=== PATIENT | male | born 1975 | race Caucasian/White ===

== ENCOUNTER 2020-10-22 14:04 | Emergency (ER) | payer BC ==
[2020-10-22] MEDS ORDERED: Lidocaine 1% 10 ML MDV INJECT ONE (14:21)
[2020-10-22] MEDS ORDERED: Diphtheria,Pertussis(Acell),Tetanus Vaccine 0.5 ML Syringe IM ONE (14:21)
--- NOTE | 2020-10-22 14:26 | EDM.PDOC ---
ED HPI GENERAL MEDICAL PROBLEM - General Chief Complaint: Laceration Stated Complaint: HAND INJURY Time Seen by Provider: 10/22/20 14:16 Source of Information: Reports: Patient, RN Notes Reviewed History Limitations: Reports: No Limitations - History of Present Illness INITIAL COMMENTS - FREE TEXT/NARRATIVE: Patient is a 45-year-old male who presents to the ER for a right middle finger laceration. Patient states he was at work, holding a sickle, when it slipped and ended up lacerating the distal portion of his right finger. This does run horizontally on the distal fingertip, and does not violate the nail at the last third of the nail. Bleeding is under control at this time, patient is not sure of his last tetanus booster. Patient denies any other sick-like symptoms, fever/chills, cough/shortness of breath, nausea/vomiting/diarrhea. Laceration itself is roughly 1 cm in length. Right Finger-Ring Pain Score (Numeric/FACES): 5 Right Finger-Middle Pain Score (Numeric/FACES): 5 - Related Data Allergies Allergy/AdvReac Type Severity Reaction Status Date / Time No Known Allergies Allergy Verified 10/17/13 12:57 Home Meds: Home Meds Dulaglutide [Trulicity] 1 injection SL WEEKLY 10/22/20 [History] atorvaSTATin [Lipitor] 20 mg PO DAILY 10/22/20 [History] metFORMIN [Glucophage] 500 mg PO DAILY 10/22/20 [History] Past Medical History Cardiovascular History: Reports: High Cholesterol Endocrine/Metabolic History: Reports: Diabetes, Type II - Past Surgical History HEENT Surgical History: Reports: Tonsillectomy Musculoskeletal Surgical History: Reports: Carpal Tunnel Social & Family History - Tobacco Use Tobacco Use Status *Q: Current Every Day Tobacco User Years of Tobacco use: 1 Packs/Tins Daily: 15 - Caffeine Use Caffeine Use: Reports: None - Recreational Drug Use Recreational Drug Use: No ED ROS GENERAL - Review of Systems Review Of Systems: Comprehensive ROS is negative, except as noted in HPI. ED EXAM, SKIN/RASH Exam: See Below Exam Limited By: No Limitations General Appearance: Alert, WD/WN, No Apparent Distress Respiratory/Chest: No Respiratory Distress, Lungs Clear, Normal Breath Sounds, No Accessory Muscle Use, Chest Non-Tender Cardiovascular: Normal Peripheral Pulses, Regular Rate, Rhythm, No Edema Peripheral Pulses: 2+: Radial (L), Radial (R) Neurological: Alert, Oriented, Normal Cognition, No Motor/Sensory Deficits Psychiatric: Normal Affect, Normal Mood Skin: Warm, Dry, Normal Color, No Rash, Wound/Incision (1cm linear laceration to distal R 3rd finger, violates the nail, is in a horizontal fashion.) ED SKIN PROCEDURES - Laceration/Wound Repair Right Posterior Distal Digit - 3rd (Middle) Appearance: Linear, Clean Distal NVT: Neuro & Vascular Intact Anesthetic Type: Local Local Anesthesia - Lidocaine (Xylocaine): 1% Plain Local Anesthetic Volume: 2cc Skin Prep: Providone-Iodine (Betadine), Saline Exploration/Debridement/Repair: Wound Explored, In a Bloodless Field, No Foreign Material Found Closed with: Sutures, Dermabond (The area of the nail laceration was closed with dermabond, pt did not want sutures through nail) Lac/Wound length In cm: 1 Suture Size: 4-0 # of Sutures: 3 Suture Type: Prolene, Interrupted, Simple Sterile Dressing Applied: Nurse Tetanus Status Addressed: Yes Complications: No Course - Vital Signs Last Recorded V/S: Last Vital Signs Temp 97.1 F 10/22/20 14:09 Pulse 90 10/22/20 14:09 Resp 16 10/22/20 14:09 BP 141/96 H 10/22/20 14:09 Pulse Ox 95 10/22/20 14:09 - Orders/Labs/Meds Orders: Active Orders 24 hr Category Date Time Status Vaccines to be Administered [RC] PER UNIT ROUTINE Care 10/22/20 14:21 Ordered Meds: Medications Discontinued Medications Generic Name Dose Route Start Last Admin Trade Name Joey PRN Reason Stop Dose Admin Diphtheria/Tetanus/Acell Pertussis 0.5 ml 10/22/20 14:21 10/22/20 15:04 Diphtheria,Pertussis(Acell),Tetanus Vaccine 0.5 Ml Syringe IM 10/22/20 14:22 0.5 ml .ONCE ONE Administration Lidocaine HCl 10 ml 10/22/20 14:21 Lidocaine 1% 10 Ml Mdv INJECT 10/22/20 14:22 ONETIME ONE Departure - Departure Time of Disposition: 14:28 Disposition: Home, Self-Care 01 Condition: Good Clinical Impression: Laceration of finger Qualifiers: Encounter type: initial encounter Finger: middle finger Damage to nail status: with damage Foreign body presence: without foreign body Laterality: right Qualified Code(s): S61.312A - Laceration without foreign body of right middle finger with damage to nail, initial encounter - Discharge Information *PRESCRIPTION DRUG MONITORING PROGRAM REVIEWED*: No *COPY OF PRESCRIPTION DRUG MONITORING REPORT IN PATIENT FELIZ: No Instructions: Sutures, Isabel, or Adhesive Wound Closure, [id number] Referrals: Buck Caba MD [Primary Care Provider] - Forms: ED Department Discharge Additional Instructions: You have been evaluated in the ED for your laceration. Sutures will need to stay in for 10 to 14 days. You may return to the ED or any clinic for removal. Please keep this area clean and dry, you may cleanse with regular soap and water. No vigorous scrubbing. Please try to avoid submerging the affected area in water for prolonged periods of time until the sutures are removed. Watch out for signs of infection like increased redness, swelling, pain at the laceration site, or if you should develop any fevers or chills. Please return to ED if your symptoms change or worsen. Sepsis Event Note (ED) - Evaluation Sepsis Screening Result: No Definite Risk - Focused Exam Vital Signs: Vital Signs Temp Pulse Resp BP Pulse Ox 10/22/20 14:09 97.1 F 90 16 141/96 H 95 - My Orders Last 24 Hours: My Active Orders 10/22/20 14:21 Vaccines to be Administered [RC] PER UNIT ROUTINE - Assessment/Plan Last 24 Hours: My Active Orders 10/22/20 14:21 Vaccines to be Administered [RC] PER UNIT ROUTINE
== END 2020-10-22 15:35 | disposition home or self-care (01) ==
LOC: JD.ED 14:04
DX: S61.312A Laceration without foreign body of right middle finger with damage to nail, initial encounter (principal); E78.00 Pure hypercholesterolemia, unspecified; E11.9 Type 2 diabetes mellitus without complications; Z79.84 Long term (current) use of oral hypoglycemic drugs; Z79.899 Other long term (current) drug therapy; Z72.0 Tobacco use; Z23 Encounter for immunization; W26.8XXA Contact with other sharp object(s), not elsewhere classified, initial encounter; Y99.0 Civilian activity done for income or pay
CPT/HCPCS: 12001; 90471; 90715; 99282; 99282-25

== ENCOUNTER 2022-03-10 16:19 | Emergency (ER) | payer BC ==
[2022-03-10] MEDS ORDERED: Lidocaine 1% 10 ML MDV INJECT ONE (17:50)
== END 2022-03-10 20:30 | disposition home or self-care (01) ==
LOC: JD.ED 16:19
DX: S61.254A Open bite of right ring finger without damage to nail, initial encounter (principal); E78.00 Pure hypercholesterolemia, unspecified; E11.9 Type 2 diabetes mellitus without complications; Z72.0 Tobacco use; Z79.84 Long term (current) use of oral hypoglycemic drugs; Z79.899 Other long term (current) drug therapy; W54.0XXA Bitten by dog, initial encounter
CPT/HCPCS: 12002; 99283